=== PATIENT | male | born 2000 | race Caucasian/White ===

== ENCOUNTER 2019-04-17 23:58 | Emergency (ER) | payer OTHER ==
[2019-04-18 00:40] VITALS: BMI 45.9
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
[2019-04-18] MEDS ORDERED: SODIUM CHLORIDE 1,000 ML IV STA (00:53)
[2019-04-18 01:27] LABS: BASO % 0.3 % (0-2.0); EOS % 0.6 % (0-4.5); HEMATOCRIT 44.4 % (35.4-49); HEMOGLOBIN 14.9 GM/dL (11.7-16.9); LYMPH % 14.6 % (8-40); MCH 28.8 pg (25.7-33.7); MCHC 33.5 g/dl (32.0-35.9); MEAN CELL VOLUME 85.9 fl (80-96); MEAN PLT VOLUME 8.7 fl (7.5-11.1); MONO % 7.8 % (3.8-10.2); NEUT % 76.7 % (42.8-82.8); PLATELET COUNT 327 K/MM3 (134-434); RBC 5.17 M/mm3 (4.00-5.60); RDW 13.1 % (11.9-15.9); WHITE BLOOD COUNT 13.1 K/mm3 (4.0-10.0)
[2019-04-18 01:52] LABS: MAGNESIUM 2.3 mg/dL (1.8-2.4); PHOSPHOROUS 3.5 mg/dL (2.5-4.9)
[2019-04-18 02:01] LABS: ALBUMIN 4.1 g/dl (3.4-5.0); BILIRUBIN,TOTAL 0.4 mg/dL (0.2-1); CALCIUM 9.2 mg/dL (8.5-10.1); CREATININE 0.8 mg/dL (0.55-1.3); POTASSIUM 4.3 mmol/L (3.5-5.1); TOT PROT 7.5 g/dl (6.4-8.2)
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
[2019-04-18 03:02] VITALS: BP 137/64; PULSE 108; TEMP 98.7
--- NOTE | 2019-04-18 08:29 | EKG ---
Test Reason : Blood Pressure : / mmHG Vent. Rate : 117 BPM Atrial Rate : 117 BPM P-R Int : 140 ms QRS Dur : 086 ms QT Int : 310 ms P-R-T Axes : 035 015 012 degrees QTc Int : 432 ms SINUS TACHYCARDIA POSSIBLE LEFT ATRIAL ENLARGEMENT LEFT VENTRICULAR HYPERTROPHY ABNORMAL ECG NO PREVIOUS ECGS AVAILABLE Confirmed by DAMARIS MARI, SANJANA ([id number]) on 04/18/2019 8:29:19 AM Referred By: Confirmed By:SANJANA OCAMPO MD
== END 2019-04-18 03:14 | disposition home or self-care (01) ==
LOC: JER 23:58
PROC: 3E0337Z Introduction of Electrolytic and Water Balance Substance into Peripheral Vein, Percutaneous Approach (ICD-10-PCS; principal; 2019-04-17)
DX: R00.2 Palpitations (principal)
CPT/HCPCS: 36415; 71045-TC-FY; 80053; 82550; 83735; 84100; 84443; 84484; 85025; 85379; 93005; 93010; 99281-25; J7030

== ENCOUNTER 2019-08-17 17:56 | Emergency (ER) | payer OTHER ==
[2019-08-17 18:01] VITALS: BP 143/97; PULSE 109; TEMP 98; BMI 43.8
--- NOTE | 2019-08-17 18:03 | PDOC ---
Rapid Medical Evaluation Medical Evaluation: Allergies Allergy/AdvReac Type Severity Reaction Status Date / Time No Known Allergies Allergy Verified 04/18/19 00:40 I have performed a brief in-person evaluation of this patient. The patient presents with a chief complaint of: hx of asthma, C/o L sided chest pressure from last night; denies SOB; feels better with exertion; denies URI sxs ; denies smoking, drug use Pertinent physical exam findings: In NAD, lungs clear I have ordered the following: EKG, CXR The patient will proceed to the ED for further evaluation. 08/17/19 18:00
--- NOTE | 2019-08-17 18:52 | PDOC ---
History of Present Illness - General Chief Complaint: Chest Pain Stated Complaint: CHEST PRESSURE Time Seen by Provider: 08/17/19 18:00 History Source: Patient Exam Limitations: Clinical Condition - History of Present Illness Initial Comments: 08/17/19 18:48 Patient with no significant past medical history presented with complaint of left-sided achiness in the lateral aspect of chest since last night. Patient reported he started for mild discomfort after eating chicken last night which has been intermittent since yesterday. 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 Patient reported he has been having multiple episodes of heart problems when he feels pain pacing his chest and had multiple tests done with normal findings. Patient reported he had a Holter monitor done 4 months ago and also echo done 3 months ago with normal findings. Patient has been seen by multiple flat examiner in the past year for same complaint with no finding. Patient report he is being followed up by cardiology and [facility] and reported had 4 visits to ED in different hospital this year for same symptoms and always being told everything is fine. Patient reported is being scheduled by his cardiology for strep test but has not had time to do it yet. Denies shortness of breath, tingling or numbing sensation, sweats, nausea or vomiting. Patient reports symptoms does not feel like a chest pain but feels more like a chest discomfort. Denies any other symptoms. Patient reports pain is resolved now Is this a multiple visit Asthma Patient?: No Past History - Past Medical History Allergies/Adverse Reactions: Allergies Allergy/AdvReac Type Severity Reaction Status Date / Time Penicillins Allergy Verified 08/17/19 18:02 Asthma: Yes COPD: No - Psycho Social/Smoking Cessation Hx Smoking History: Never smoked Have you smoked in the past 12 months: No Hx Alcohol Use: No Drug/Substance Use Hx: No Review of Systems - Review of Systems Able to Perform ROS?: Yes Is the patient limited Bangladeshi proficient: No Constitutional: No: Malaise, Weakness HEENTM: No: Symptoms Reported, Eye Pain, Blurred Vision, Recent change in vision Respiratory: No: Symptoms reported, See HPI, Cough, Orthopnea, Shortness of Breath, SOB with Exertion, SOB at Rest, Stridor, Wheezing, Productive cough, Hemoptysis, Other Cardiac (ROS): Yes: Symptoms Reported, See HPI, Chest Tightness (left side chest discomfort resolved). No: Chest Pain, Edema, Irregular Heart Rate, Lightheadedness, Palpitations, Syncope, Other ABD/GI: No: Symptoms Reported, Nausea, Vomiting Neurological: No: Symptoms reported, Headache, Numbness, Tingling, Dizziness All Other Systems: Reviewed and Negative *Physical Exam - Vital Signs Last Vital Signs Temp Pulse Resp BP Pulse Ox 98 F 109 H 18 143/97 98 08/17/19 17:58 08/17/19 17:58 08/17/19 17:58 08/17/19 17:58 08/17/19 17:58 - Physical Exam Comments: 08/17/19 18:52 GENERAL: Well developed, well nourished. Awake and alert. Moderate obese patient in no acute distress. HEENT: Normocephalic, atraumatic. PERRLA, EOMI. No conjunctival pallor. Sclera are non-icteric. Moist mucous membranes. Oropharynx is clear. NECK: Supple. Full ROM. CARDIOVASCULAR: Regular rate and rhythm. No murmurs, rubs, or gallops. Distal pulses are 2+ and symmetric. PULMONARY: No evidence of respiratory distress. Lungs clear to auscultation bilaterally. No wheezing, rales or rhonchi. ABDOMINAL: Soft. Non-tender. Non-distended. No rebound or guarding. No organomegaly. Normoactive bowel sounds. MUSCULOSKELETAL Normal range of motion at all joints. EXTREMITIES: No cyanosis. No clubbing. No edema. No calf tenderness. SKIN: Warm and dry. Normal capillary refill. NEUROLOGICAL: Alert, awake, appropriate. Gait is normal without ataxia. PSYCHIATRIC: Cooperative. Good eye contact. Appropriate mood General Appearance: Yes: Nourished, Appropriately Dressed. No: Apparent Distress Medical Decision Making - Medical Decision Making 08/17/19 18:50 Patient with no significant past medical history presented with complaint of left-sided achiness in the lateral aspect of chest since last night. Patient reported he started for mild discomfort after eating chicken last night which has been intermittent since yesterday. 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 Patient reported he has been having multiple episodes of heart problems when he feels pain pacing his chest and had multiple tests done with normal findings. Patient reported he had a Holter monitor done 4 months ago and also echo done 3 months ago with normal findings. Patient has been seen by multiple flat examiner in the past year for same complaint with no finding. Patient report he is being followed up by cardiology and [facility] and reported had 4 visits to ED in different hospital this year for same symptoms and always being told everything is fine. Patient reported is being scheduled by his cardiology for strep test but has not had time to do it yet. Denies shortness of breath, tingling or numbing sensation, sweats, nausea or vomiting. Patient reports symptoms does not feel like a chest pain but feels more like a chest discomfort. Denies any other symptoms. Patient reports pain is resolved now Clinical exam unremarkable with normal cardio lung exam. No reproducible tenderness to chest wall. EKG shows normal sinus rhythm. Chest x-ray ordered to rule out acute chest pathology 08/17/19 19:25 Chest x-ray with no acute infiltrate or pathology. Patient is symptomatic and stable for discharge with cardiology follow-up. Strict follow-up instruction given to patient including coming back to ED if worsening chest pain Discharge - Discharge Information Problems reviewed: Yes Clinical Impression/Diagnosis: Chest discomfort Condition: Improved Disposition: HOME - Admission No - Follow up/Referral - Patient Discharge Instructions Patient Printed Discharge Instructions: DI for Atypical Chest Pain, DI for Chest Pain Additional Instructions: Your EKG was normal. Your chest x-ray is normal and shows no acute pathology. Symptoms likely caused by muscle strain. Follow-up with your flat examiner. Come back to emergency room if worsening chest pain with shortness of breath. - Post Discharge Activity
[2019-08-17] MEDS ORDERED: ACETAMINOPHEN 325 MG TABLET (FP) PO ONE (19:24)
--- NOTE | 2019-08-18 11:29 | EKG ---
Test Reason : Blood Pressure : / mmHG Vent. Rate : 098 BPM Atrial Rate : 098 BPM P-R Int : 130 ms QRS Dur : 088 ms QT Int : 340 ms P-R-T Axes : 029 018 028 degrees QTc Int : 434 ms NORMAL SINUS RHYTHM MINIMAL VOLTAGE CRITERIA FOR LVH, MAY BE NORMAL VARIANT BORDERLINE ECG WHEN COMPARED WITH ECG OF 18-APR-2019 02:20, NONSPECIFIC T WAVE ABNORMALITY NO LONGER EVIDENT IN ANTERIOR LEADS Confirmed by MINDY MARI, SAÚL ([id number]) on 08/18/2019 11:29:18 AM Referred By: Confirmed By:SAÚL GUILLEN MD
== END 2019-08-17 19:27 | disposition home or self-care (01) ==
LOC: JERFT 17:56
DX: R07.89 Other chest pain (principal); Z88.0 Allergy status to penicillin
CPT/HCPCS: 71046-TC-FY; 93005; 93010; 99281-25

== ENCOUNTER 2019-09-21 04:53 | Emergency (ER) | payer OTHER ==
[2019-09-21 05:59] VITALS: BP 150/73; PULSE 91; TEMP 98.1; BMI 45.0
--- NOTE | 2019-09-21 06:18 | PDOC ---
History of Present Illness <Von Patel - Last Filed: 09/21/19 07:16> - General History Source: Patient Exam Limitations: No Limitations - History of Present Illness Initial Comments: 09/21/19 06:10 Deni Kuhn is a 19M with PMH renal stones presenting with suprapubic pain. 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 Allergy to penicillin No other PMH No other PSH No tobacco/drugs/alcohol <Rolan Carreno - Last Filed: 09/22/19 14:43> - General Chief Complaint: Urinary Problem Stated Complaint: ABDOMINAL PAIN Time Seen by Provider: 09/21/19 05:28 Past History <Von Patel - Last Filed: 09/21/19 07:16> - Past Medical History Asthma: Yes COPD: No - Immunization History Td Vaccination: Yes TDAP Vaccination: Yes Immunization Up to Date: Yes - Psycho Social/Smoking Cessation Hx Smoking History: Never smoked Have you smoked in the past 12 months: No Information on smoking cessation initiated: No Hx Alcohol Use: No Drug/Substance Use Hx: No <Rolan Carreno - Last Filed: 09/22/19 14:43> - Past Medical History Allergies/Adverse Reactions: Allergies Allergy/AdvReac Type Severity Reaction Status Date / Time Penicillins Allergy Verified 09/21/19 05:42 Home Medications: Ambulatory Orders NK [No Known Home Medication] 09/21/19 Review of Systems - Review of Systems Able to Perform ROS?: Yes Constitutional: No: Symptoms Reported HEENTM: No: Symptoms Reported Respiratory: No: Symptoms reported Cardiac (ROS): No: Symptoms Reported ABD/GI: No: Constipated, Diarrhea, Nausea, Poor Appetite, Poor Fluid Intake, Vomiting : Yes: Frequency, Testicular Pain. No: Burning, Dysuria, Discharge, Flank Pain, Hematuria, Incontinence, Pain, Urgency, Testicular Mass, Testicular Swelling Musculoskeletal: No: Symptoms Reported Integumentary: No: Symptoms Reported Neurological: No: Symptoms reported Endocrine: No: Symptoms Reported Hematologic/Lymphatic: No: Symptoms Reported All Other Systems: Reviewed and Negative <Rolan Carreno - Last Filed: 09/22/19 14:43> *Physical Exam - Vital Signs Last Vital Signs Temp Pulse Resp BP Pulse Ox 98.1 F 91 H 20 150/73 100 09/21/19 05:38 09/21/19 05:38 09/21/19 05:38 09/21/19 05:38 09/21/19 05:38 <Von Patel - Last Filed: 09/21/19 07:16> - Vital Signs Last Vital Signs Temp Pulse Resp BP Pulse Ox 98.1 F 91 H 20 150/73 100 09/21/19 05:38 09/21/19 05:38 09/21/19 05:38 09/21/19 05:38 09/21/19 05:38 - Physical Exam General Appearance: Yes: Nourished, Appropriately Dressed, Obese HEENT: positive: EOMI, LILA, Normal Voice, Symmetrical, Pharynx Normal, Hearing Grossly Normal. negative: Scleral Icterus (R), Scleral Icterus (L) Neck: positive: Trachea midline, Normal Thyroid, Supple. negative: Tender, Lymphadenopathy (R), Lymphadenopathy (L) Respiratory/Chest: positive: Lungs Clear, Normal Breath Sounds. negative: Chest Tender, Respiratory Distress, Accessory Muscle Use, Crackles, Rales, Rhonchi, Stridor, Wheezing Cardiovascular: positive: Regular Rhythm, Regular Rate Gastrointestinal/Abdominal: positive: Normal Bowel Sounds, Flat, Soft, Organomegaly. negative: Tender, Pulsatile Mass, Guarding, Rebound Male Genitalia: positive: normal genitalia, inguinal hernia (L side indirect, worsens with Valsalva). negative: discharge, testicular tenderness, testicular mass, epididymus tender Musculoskeletal: positive: Normal Inspection. negative: CVA Tenderness Extremity: positive: Normal Capillary Refill, Normal Inspection. negative: Normal Range of Motion, Tender Integumentary: positive: Normal Color, Dry, Warm Neurologic: positive: Fully Oriented, Alert, Normal Mood/Affect, Normal Response <Rolan Carreno - Last Filed: 09/22/19 14:43> ED Treatment Course - ADDITIONAL ORDERS Additional order review: Laboratory Results 09/21/19 06:20 Urine Color Yellow Urine Appearance Clear Urine pH 6.0 Ur Specific [place] 1.021 Urine Protein Negative Urine Glucose (UA) Negative Urine Ketones Negative Urine Blood Negative Urine Nitrite Negative Urine Bilirubin Negative Urine Urobilinogen 0.2 Ur Leukocyte Esterase Trace Urine WBC (Auto) 6 Urine RBC (Auto) 1 Urine Casts (Auto) 4 U Epithel Cells (Auto) 1.2 Urine Bacteria (Auto) 2.9 <JorgeVon - Last Filed: 09/21/19 07:16> Medical Decision Making - Medical Decision Making 09/21/19 06:10 Deni Kuhn is a 19M with H renal stones presenting with suprapubic pain. Ddx includes renal stones, UTI, torsion, hernia, constipation. Low risk of STD, patient denies sexual activity. UA/UC 09/21/19 07:22 UA negative. Physical exam shows non-tender L indirect inguinal hernia confirmed with movement with cough. Attending examination did not reveal this, had spontaneously reduced. Non-tender testicles, no penile discharge. Patient in NAD with no N/V, asymptomatic. Stable to be discharged home with PMD and general surgery consult for evaluation of indirect inguinal hernia. <Rolan Carreno - Last Filed: 09/22/19 14:43> Discharge - Discharge Information Problems reviewed: Yes - Admission No <JorgeVon kebede - Last Filed: 09/21/19 07:16> - Discharge Information Problems reviewed: Yes - Admission No <Rolan Carreno - Last Filed: 09/22/19 14:43> - Discharge Information Clinical Impression/Diagnosis: Suprapubic pain, Inguinal hernia of left side without obstruction or gangrene Condition: Stable Disposition: HOME - Follow up/Referral Referrals: Keo Nair MD [Staff Physician] - - Patient Discharge Instructions Patient Printed Discharge Instructions: DI for Groin Hernia Additional Instructions: You were seen for abdominal pain. You may have a hernia. Your labs did not show anything concerning. Please make an appointment with your primary care doctor regarding your visit. See the referred surgeon if your pain does not improve. Come back to the ED if you have worsening pain, vomiting, bloody bowel movement , or cannot urinate or defecate.
--- NOTE | 2019-09-21 06:44 | PDOC ---
Attending Attestation - Resident Resident Name: Rolan Carreno - ED Attending Attestation I have performed the following: I have examined & evaluated the patient, The case was reviewed & discussed with the resident, I agree w/resident's findings & plan, Exceptions are as noted - HPI HPI: 09/21/19 07:11 19M no pmh here with pelvic pressure for a day. Started insidiously, no spikes , no pain free periods, no dysuria, urgency, frequency. 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 - Physicial Exam PE: 09/21/19 07:13 Agree with exam as documented by resident Small, freely mobile, easily reduced L inguinal hernia - Medical Decision Making 09/21/19 07:13 Small, reduced L inguinal hernia UA clear Gen surg follow up
[2019-09-21 06:54] LABS: EPI CELLS 1.2 /HPF (0-5/HPF); HYALINE CASTS 4 /lpf (0-8); URINE APPEARANCE CLEAR; URINE BACTERIA 2.9 /hpf (NEGATIVE); URINE BILIRUBIN NEGATIVE (NEGATIVE); URINE COLOR YELLOW; URINE GLUCOSE (UA) NEGATIVE (NEGATIVE); URINE KETONE NEGATIVE (NEGATIVE); URINE LEUK ESTERASE TRACE (NEGATIVE); URINE NITRITE NEGATIVE (NEGATIVE); URINE PROTEIN NEGATIVE (NEGATIVE); URINE RBC 1 /hpf (0-4); URINE UROBILINOGEN 0.2 mg/dL (0.2-1.0); URINE WBC 6 /hpf (0-5)
== END 2019-09-21 07:22 | disposition home or self-care (01) ==
LOC: JER 04:53
DX: R10.30 Lower abdominal pain, unspecified (principal); K46.9 Unspecified abdominal hernia without obstruction or gangrene; Z88.0 Allergy status to penicillin; K59.00 Constipation, unspecified; N39.0 Urinary tract infection, site not specified
CPT/HCPCS: 81003; 87086; 99282-25

== ENCOUNTER 2019-11-25 04:18 | Emergency (ER) | payer OTHER ==
[2019-11-25] MEDS ORDERED: SODIUM CHLORIDE 1,000 ML IV STA (04:24)
[2019-11-25 04:28] VITALS: TEMP 98.2; BMI 43.4
--- NOTE | 2019-11-25 04:31 | PDOC ---
Attending Attestation - Resident Resident Name: Isa Buck - ED Attending Attestation I have performed the following: I have examined & evaluated the patient, The case was reviewed & discussed with the resident, I agree w/resident's findings & plan - HPI HPI: 11/25/19 06:53 {Pt comes with chest pain and palpitations. - Physicial Exam PE: 11/25/19 06:53 Pt has tachycardia afebrile heart tachy lungs CTA abd soft NT ND no flank pain no ext tenderness - Medical Decision Making 11/25/19 07:03 Pt is obese and he has been eating [place] and junk food and not exercising. He lost his job in [employer] and hasn't gotten another one. Pt is stressed. Takes his propranolol. Now with atypical CP EKG pattern normal Tachy CXR normal labs normal Heart Score/ECG Review - ECG Intrepretation Rhythm: Regular Rhythm - [place]: Normal - P and NC Delta Wave(s) Present: No WPW: No - ST and T Early Repolarization: No Non Specific ST-T Wave changes: No Flattened T Waves: No Prolonged Q-T Interval: No - ECG Impressions Normal ECG: Yes Non-specific ST Elevation: No Ischemic Changes: No Bradycardia: No Tachycardia: Sinus Torsades param Pointes: No WPW: No
--- NOTE | 2019-11-25 04:38 | PDOC ---
History of Present Illness - History of Present Illness Initial Comments: 11/25/19 04:32 19 yo M PMH unexplained tachycardia on propranolol, obesity, presenting with tachycardia. Reports that he had finished eating [place] food when he began to develop faster heart rate. Became nauseous and vomited all of the food he ate, after which he initially felt better. However, he began to develop mild chest pain and shortness of breath, became more and more anxious, and so he called EMS. Notes that he has not been drinking much fluid recently. Has been eating very unhealthy for the past two weeks. Medical Care Manager is Dr. Trivedi at [place]. Patient only has 3 tablets of propranolol left. <Isa Buck - Last Filed: 11/25/19 07:01> <Guera Salvador - Last Filed: 11/25/19 07:03> - General Chief Complaint: Chest Pain Stated Complaint: CHEST PAIN Time Seen by Provider: 11/25/19 04:30 Past History - Past Medical History Asthma: Yes Cardiac Disorders: Yes (TACHYCARDIA) COPD: No - Immunization History Td Vaccination: Yes TDAP Vaccination: Yes Immunization Up to Date: Yes - Psycho Social/Smoking Cessation Hx Smoking History: Never smoked Have you smoked in the past 12 months: No Hx Alcohol Use: No Drug/Substance Use Hx: No <Isa Buck - Last Filed: 11/25/19 07:01> <Guera Salvador - Last Filed: 11/25/19 07:03> - Past Medical History Allergies/Adverse Reactions: Allergies Allergy/AdvReac Type Severity Reaction Status Date / Time Penicillins Allergy Verified 11/25/19 04:28 Home Medications: Ambulatory Orders Propranolol HCl 20 mg PO DAILY #30 tablet 11/25/19 Review of Systems - Review of Systems Comments:: 11/25/19 05:54 GENERAL/CONSTITUTIONAL: denies fever, chills, diaphoresis, generalized weakness , malaise, loss of appetite, weight change HEAD, EYES, EARS, NOSE AND THROAT: denies rhinorrhea, nasal congestion, throat pain, throat swelling, difficulty swallowing, mouth swelling, ear pain, eye pain , visual changes NEUROLOGIC: denies headache, focal weakness or paresthesias, dizziness, unsteady gait, seizure, mental status changes, bladder or bowel incontinence CARDIOVASCULAR: endorses mild chest pain and palpitations. Denies syncope, irregular heart rate, lightheadedness, peripheral edema RESPIRATORY: endorses SOB. Denies cough, dyspnea with exertion, orthopnea, wheezing, stridor, hemoptysis GASTROINTESTINAL: endorses one episode of vomiting, not currently nauseous. Denies abdominal pain, abdominal distension, diarrhea, constipation, melena, hematochezia GENITOURINARY: denies dysuria, frequency, urgency, hesitancy, hematuria, flank pain, genital pain MUSCULOSKELETAL: denies myalgia, arthralgia, joint swelling, back pain, neck pain SKIN: denies rash, itching, pallor HEMATOLOGIC/IMMUNOLOGIC: denies easy bleeding, easy bruising, lymphadenopathy, frequent infections ENDOCRINE: denies unexplained weight gain, unexplained weight loss, heat intolerance, cold intolerance PSYCHIATRIC: denies anxiety, depression, suicidal or homicidal ideation, hallucinations. <Isa Buck - Last Filed: 11/25/19 07:01> *Physical Exam - Vital Signs Last Vital Signs Temp Pulse Resp BP Pulse Ox 98.2 F 120 H 20 150/88 100 11/25/19 04:23 11/25/19 04:23 11/25/19 04:23 11/25/19 04:23 11/25/19 04:23 - Physical Exam 11/25/19 05:55 GENERAL: Awake, alert, and fully oriented, in no acute distress. HEAD: Normal with no signs of trauma. EYES: Pupils equal, round and reactive to light, extraocular movements intact, sclera anicteric, conjunctiva clear. No lid lag. EARS, NOSE, THROAT: Ears normal, nares patent, oropharynx clear without exudates. Dry mucous membranes. NECK: Normal range of motion, supple without lymphadenopathy, JVD, or masses. LUNGS: Breath sounds equal, clear to auscultation bilaterally. No wheezes, and no crackles. No accessory muscle use. HEART: Tachycardic to 120s, normal S1 and S2 without murmur, rub or gallop. ABDOMEN: Soft, obese, nontender, non-distended, normoactive bowel sounds, negative guarding, negative rebound MUSCULOSKELETAL: Normal range of motion at all joints. No bony deformities or tenderness. No CVA tenderness. UPPER EXTREMITIES: 2+ pulses, warm, well-perfused. No cyanosis. No clubbing. Cap refill <2 seconds. No peripheral edema. LOWER EXTREMITIES: 2+ pulses, warm, well-perfused. No calf tenderness. No peripheral edema. NEUROLOGICAL: Cranial nerves II-XII intact. Normal speech. PSYCHIATRIC: Cooperative. Good eye contact. Appropriate mood and affect. SKIN: Warm, dry, normal turgor, no rashes or lesions noted. <Isa Buck - Last Filed: 11/25/19 07:01> - Vital Signs Last Vital Signs Temp Pulse Resp BP Pulse Ox 98.2 F 98 H 18 150/88 99 11/25/19 04:23 11/25/19 06:35 11/25/19 05:43 11/25/19 04:23 11/25/19 05:43 <Guera Salvador - Last Filed: 11/25/19 07:03> ED Treatment Course - LABORATORY CBC & Chemistry Diagram: 11/25/19 05:00 11/25/19 05:00 <Isa Buck - Last Filed: 11/25/19 07:01> - LABORATORY CBC & Chemistry Diagram: 11/25/19 05:00 11/25/19 05:00 - ADDITIONAL ORDERS Additional order review: Laboratory Results 11/25/19 05:00 Sodium 142 Potassium 3.9 Chloride 108 H Carbon Dioxide 29 Anion Gap 6 L BUN 9.5 Creatinine 0.8 Est GFR (CKD-EPI)AfAm 149.04 Est GFR (CKD-EPI)NonAf 128.60 Random Glucose 104 Calcium 8.9 Total Bilirubin 0.4 AST 47 H ALT 107 H Alkaline Phosphatase 118 H Creatine Kinase 65 Troponin I 0.04 Total Protein 6.6 Albumin 3.4 TSH 0.96 D 11/25/19 05:00 RBC 4.82 MCV 85.1 MCHC 34.3 RDW 13.2 MPV 9.1 Neutrophils % 73.2 Lymphocytes % 17.6 D Monocytes % 8.5 Eosinophils % 0.5 Basophils % 0.2 - Medications Given in the ED: ED Medications Discontinued Medications Generic Name Dose Route Start Last Admin Trade Name Freq PRN Reason Stop Dose Admin Sodium Chloride 1,000 mls @ 1,000 mls/hr 11/25/19 04:24 11/25/19 05:12 Normal Saline - IV 11/25/19 05:23 1,000 mls/hr ASDIR STA Administration <Guera Salvador - Last Filed: 11/25/19 07:03> Medical Decision Making - Medical Decision Making 11/25/19 04:36 Concern for dehydration vs hyperthyroidism. - CBC, CMP - EKG, CXR - IVF EKG with sinus tachycardia at 120, otherwise unremarkable. 11/25/19 06:05 WBC 12.9. CXR without acute pathology. 11/25/19 06:26 Labs unremarkable. Specifically, TSH normal. Patient took his home propranolol, heart rate down to high 90s/low 100s. Will dc for further outpatient management. <Ias Buck - Last Filed: 11/25/19 07:01> Discharge - Discharge Information Problems reviewed: Yes - Admission No <Isa Buck - Last Filed: 11/25/19 07:01> <Guera Salvador - Last Filed: 11/25/19 07:03> - Discharge Information Clinical Impression/Diagnosis: Palpitations Condition: Improved Disposition: HOME - Additional Discharge Information Prescriptions: Propranolol HCl 20 mg PO DAILY #30 tablet - Follow up/Referral Referrals: Eliza Trivedi MD [Primary Care Provider] - - Patient Discharge Instructions Patient Printed Discharge Instructions: Eating a Diet Rich in Fruits and Vegetables Additional Instructions: You were seen with palpitations. This improved with fluids and propranolol. Your labs were unconcerning. Follow up with your machine adjuster leader case trim and your primary care doctor within one week. Return to the ED if you develop worsening symptoms.
[2019-11-25 05:59] LABS: BASO % 0.2 % (0-2.0); EOS % 0.5 % (0-4.5); HEMATOCRIT 41.1 % (35.4-49); HEMOGLOBIN 14.1 GM/dL (11.7-16.9); LYMPH % 17.6 % (8-40); MCH 29.2 pg (25.7-33.7); MCHC 34.3 g/dl (32.0-35.9); MEAN CELL VOLUME 85.1 fl (80-96); MEAN PLT VOLUME 9.1 fl (7.5-11.1); MONO % 8.5 % (3.8-10.2); NEUT % 73.2 % (42.8-82.8); PLATELET COUNT 324 K/MM3 (134-434); RBC 4.82 M/mm3 (4.00-5.60); RDW 13.2 % (11.9-15.9); WHITE BLOOD COUNT 12.9 K/mm3 (4.0-10.0)
[2019-11-25 06:25] LABS: ALBUMIN 3.4 g/dl (3.4-5.0); BILIRUBIN,TOTAL 0.4 mg/dL (0.2-1); BLOOD UREA NITROGEN 9.5 mg/dL (7-18); CALCIUM 8.9 mg/dL (8.5-10.1); CREATININE 0.8 mg/dL (0.55-1.3); POTASSIUM 3.9 mmol/L (3.5-5.1); TOT PROT 6.6 g/dl (6.4-8.2)
[2019-11-25 06:35] VITALS: PULSE 98
[2019-11-25 07:03] VITALS: BP 145/83
--- NOTE | 2019-11-26 10:13 | EKG ---
Test Reason : Blood Pressure : / mmHG Vent. Rate : 120 BPM Atrial Rate : 120 BPM P-R Int : 146 ms QRS Dur : 088 ms QT Int : 308 ms P-R-T Axes : 055 030 039 degrees QTc Int : 435 ms POOR DATA QUALITY, INTERPRETATION MAY BE ADVERSELY AFFECTED SINUS TACHYCARDIA LATERAL INFARCT , AGE UNDETERMINED ABNORMAL ECG WHEN COMPARED WITH ECG OF 17-AUG-2019 18:03, COMPARED TO EKG NO SIGNIFICANT CHANGE IS FOUND Confirmed by Guerrero Weller ([id number]) on 11/26/2019 10:13:37 AM Referred By: Confirmed By:Guerrero Weller
== END 2019-11-25 07:03 | disposition home or self-care (01) ==
LOC: JER 04:18
PROC: 3E0337Z Introduction of Electrolytic and Water Balance Substance into Peripheral Vein, Percutaneous Approach (ICD-10-PCS; principal; 2019-11-25)
DX: R07.9 Chest pain, unspecified (principal); R00.2 Palpitations; E66.01 Morbid (severe) obesity due to excess calories; Z68.41 Body mass index [BMI] 40.0-44.9, adult
CPT/HCPCS: 36415; 71045-TC-FY; 80053; 82550; 84443; 84484; 85025; 93005; 93010; 96360; 99285-25; J7030

== ENCOUNTER 2019-11-29 21:09 | Emergency (ER) | payer OTHER ==
--- NOTE | 2019-11-29 21:13 | PDOC ---
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 No m/r/g. Orders: cardiac w/u Patient will proceed to ED for continued evaluation. Discharge Disposition - Diagnosis Chest discomfort - Referrals - Patient Instructions - Post Discharge Activity
[2019-11-29 21:14] VITALS: BMI 41.7
[2019-11-29 21:44] LABS: BASO % 0.3 % (0-2.0); EOS % 0.2 % (0-4.5); HEMATOCRIT 47.7 % (35.4-49); HEMOGLOBIN 16.1 GM/dL (11.7-16.9); LYMPH % 14.5 % (8-40); MCH 28.8 pg (25.7-33.7); MCHC 33.7 g/dl (32.0-35.9); MEAN CELL VOLUME 85.4 fl (80-96); MEAN PLT VOLUME 8.9 fl (7.5-11.1); MONO % 6.2 % (3.8-10.2); NEUT % 78.8 % (42.8-82.8); PLATELET COUNT 405 K/MM3 (134-434); RBC 5.58 M/mm3 (4.00-5.60); WHITE BLOOD COUNT 12.1 K/mm3 (4.0-10.0)
[2019-11-29 22:19] LABS: ALBUMIN 4.2 g/dl (3.4-5.0); BILIRUBIN,TOTAL 0.8 mg/dL (0.2-1); BLOOD UREA NITROGEN 6.8 mg/dL (7-18); CALCIUM 9.8 mg/dL (8.5-10.1); CREATININE 0.8 mg/dL (0.55-1.3); MAGNESIUM 2.1 mg/dL (1.8-2.4); POTASSIUM 4.1 mmol/L (3.5-5.1)
[2019-11-29] MEDS: ASPIRIN 81 MG CHEWABLE TABLETS PO ONE (22:54)
[2019-11-29] MEDS ORDERED: ASPIRIN 81 MG CHEWABLE TABLETS ONE (23:01)
[2019-11-29 23:33] VITALS: TEMP 98
[2019-11-30] MEDS ORDERED: METOPROLOL TARTRATE 5 MG/5 ML VIAL IVPUSH ONE
[2019-11-30] MEDS ORDERED: SODIUM CHLORIDE 1,000 ML IV STA (00:34)
[2019-11-30] MEDS ORDERED: METOPROLOL TARTRATE 5 MG/5 ML VIAL ONE (00:38)
--- NOTE | 2019-11-30 00:43 | PDOC ---
History of Present Illness - General Chief Complaint: Chest Pain Stated Complaint: CHEST PAIN Time Seen by Provider: 11/29/19 21:11 History Source: Patient Exam Limitations: No Limitations Past History - Past Medical History Allergies/Adverse Reactions: Allergies Allergy/AdvReac Type Severity Reaction Status Date / Time Penicillins Allergy Verified 11/29/19 21:14 Home Medications: Ambulatory Orders Propranolol HCl 20 mg PO DAILY #30 tablet 11/25/19 Asthma: Yes Cardiac Disorders: Yes (TACHYCARDIA) COPD: No - Immunization History Td Vaccination: Yes TDAP Vaccination: Yes Immunization Up to Date: Yes - Psycho Social/Smoking Cessation Hx Smoking History: Never smoked Have you smoked in the past 12 months: No Hx Alcohol Use: No Drug/Substance Use Hx: No *Physical Exam - Vital Signs Last Vital Signs Temp Pulse Resp BP Pulse Ox 98.0 F 131 H 16 149/84 98 11/29/19 22:13 11/29/19 22:13 11/29/19 22:13 11/29/19 22:13 11/29/19 22:13 - Physical Exam General Appearance: No: Apparent Distress Respiratory/Chest: positive: Lungs Clear, Normal Breath Sounds. negative: Respiratory Distress Cardiovascular: positive: Tachycardia. negative: Murmur Gastrointestinal/Abdominal: positive: Normal Bowel Sounds, Soft. negative: Tender, Distended, Guarding, Rebound Extremity: negative: Pedal Edema, Swelling, Calf Tenderness Neurologic: positive: Alert ED Treatment Course - LABORATORY CBC & Chemistry Diagram: 11/29/19 21:30 11/29/19 21:30 - ADDITIONAL ORDERS Additional order review: Laboratory Results 11/29/19 11/29/19 21:30 21:30 Sodium 138 Potassium 4.1 Chloride 105 Carbon Dioxide 25 Anion Gap 8 BUN 6.8 L Creatinine 0.8 Est GFR (CKD-EPI)AfAm 149.04 Est GFR (CKD-EPI)NonAf 128.60 Random Glucose 123 H Calcium 9.8 Magnesium 2.1 Total Bilirubin 0.8 AST 35 ALT 78 H Alkaline Phosphatase 119 H Creatine Kinase 54 Troponin I 0.05 Total Protein 8.0 Albumin 4.2 11/29/19 21:30 RBC 5.58 MCV 85.4 MCHC 33.7 RDW 13.0 MPV 8.9 Neutrophils % 78.8 Lymphocytes % 14.5 Monocytes % 6.2 Eosinophils % 0.2 Basophils % 0.3 - Medications Given in the ED: ED Medications Discontinued Medications Generic Name Dose Route Start Last Admin Trade Name Natalie PRN Reason Stop Dose Admin Aspirin 162 mg 11/29/19 21:13 11/29/19 22:54 Asa - PO 11/29/19 21:14 162 mg ONCE ONE Administration Medical Decision Making - Medical Decision Making 19-year-old male with history of asthma, chronic palpitations since August 2018 (cause unclear) presents with complaint of substernal chest discomfort which started around 5-6 PM along with palpitations, mild shortness of breath and mild lightheadedness. Patient is following with a manager universal at [facility] for his symptoms. Patient was here 4 days ago for similar complaint and received a refill for his propanolol which was initially prescribed by his manager universal in September 2019. He states he has had a Holter testing done in either July or August 2019 which was normal. He is also had an echocardiogram done in the past few months which was also normal. States he is only pending to get a stress test done. Denies fever, URI symptoms, abdominal pain, nausea, vomiting, calf pain. Denies smoking or drug use. EKG 9:24 PM: Sinus tachycardia at 118 BPM Repeat EKG 11:41 PM: Sinus tachycardia at 120 BPM Labs reviewed unremarkable Patient had TSH checked 4 days ago which was normal Given chronic palpitations and no history of recent travel or recent surgeries not suspicious for PE Labs reviewed and unremarkable Discussed with Dr. Murray who wanted to admit patient for telemetry observation Discussed case with admitting, Dr. Borja, who would like a urine toxicology and patient to receive IV fluids before admission Pending results of urine tox 11/30/19 00:42 Patient HR improved to 90s after receiving Metoprolol D/W Dr. Murray - recommends given dose of PO Metoprolol and having patient f/u with manager universal instead of admitting him Patient otherwise well appearing There could be component of psychological factor causing sinus tachycardia too ( patient seems nervous from conversation with him) 11/30/19 01:45 Discharge - Discharge Information Problems reviewed: Yes Clinical Impression/Diagnosis: Palpitations Condition: Stable Disposition: HOME - Admission No - Follow up/Referral Referrals: Eliza Trivedi MD [Primary Care Provider] - - Patient Discharge Instructions Patient Printed Discharge Instructions: DI for Palpitations Additional Instructions: Thank you for choosing [facility]. It was a pleasure taking care of you. Please continue taking your propanolol Please continue follow-up with your manager universal within 1 week Also recommend following up with your primary care doctor in 1 week Return to the Emergency Department if your symptoms worsen or persist or have other concerning symptoms. - Post Discharge Activity
[2019-11-30] MEDS: ASPIRIN 81 MG CHEWABLE TABLETS PO ONE (00:55)
[2019-11-30] MEDS ORDERED: METOPROLOL TARTRATE 25 MG TABLET (FP) PO ONE (01:31)
[2019-11-30] MEDS ORDERED: METOPROLOL TARTRATE 25 MG TABLET (FP) ONE (01:35)
[2019-11-30 01:59] VITALS: BP 141/82; PULSE 92
--- NOTE | 2019-11-30 06:23 | PDOC ---
*Physical Exam - Vital Signs Last Vital Signs Temp Pulse Resp BP Pulse Ox 98.0 F 92 H 18 141/82 100 11/29/19 22:13 11/30/19 01:58 11/30/19 01:58 11/30/19 01:58 11/30/19 01:58 ED Treatment Course - LABORATORY CBC & Chemistry Diagram: 11/29/19 21:30 11/29/19 21:30 - ADDITIONAL ORDERS Additional order review: Laboratory Results 11/29/19 11/29/19 21:30 21:30 Sodium 138 Potassium 4.1 Chloride 105 Carbon Dioxide 25 Anion Gap 8 BUN 6.8 L Creatinine 0.8 Est GFR (CKD-EPI)AfAm 149.04 Est GFR (CKD-EPI)NonAf 128.60 Random Glucose 123 H Calcium 9.8 Magnesium 2.1 Total Bilirubin 0.8 AST 35 ALT 78 H Alkaline Phosphatase 119 H Creatine Kinase 54 Troponin I 0.05 Total Protein 8.0 Albumin 4.2 11/29/19 21:30 RBC 5.58 MCV 85.4 MCHC 33.7 RDW 13.0 MPV 8.9 Neutrophils % 78.8 Lymphocytes % 14.5 Monocytes % 6.2 Eosinophils % 0.2 Basophils % 0.3 - Medications Given in the ED: ED Medications Discontinued Medications Generic Name Dose Route Start Last Admin Trade Name Freq PRN Reason Stop Dose Admin Aspirin 162 mg 11/29/19 21:13 11/30/19 00:55 Asa - PO 11/29/19 21:14 Not Given ONCE ONE Sodium Chloride 1,000 mls @ 1,000 mls/hr 11/30/19 00:34 11/30/19 00:47 Normal Saline - IV 11/30/19 01:33 Not Given ASDIR STA Metoprolol Tartrate 5 mg 11/30/19 00:00 11/30/19 00:47 Lopressor Injection - IVPUSH 11/30/19 00:01 5 mg ONCE ONE Administration Metoprolol Tartrate 25 mg 11/30/19 01:31 11/30/19 01:39 Lopressor - PO 11/30/19 01:32 25 mg ONCE ONE Administration Medical Decision Making - Medical Decision Making 11/30/19 06:22 Case reviewed, agree with assessment and plan Discharge - Discharge Information Problems reviewed: Yes Clinical Impression/Diagnosis: Palpitations Condition: Stable Disposition: HOME - Follow up/Referral Referrals: Eliza Trivedi MD [Primary Care Provider] - - Patient Discharge Instructions Patient Printed Discharge Instructions: DI for Palpitations Additional Instructions: Thank you for choosing [facility]. It was a pleasure taking care of you. Please continue taking your propanolol Please continue follow-up with your renewals manager within 1 week Also recommend following up with your primary care doctor in 1 week Return to the Emergency Department if your symptoms worsen or persist or have other concerning symptoms. - Post Discharge Activity
--- NOTE | 2019-11-30 11:44 | EKG ---
Test Reason : Blood Pressure : / mmHG Vent. Rate : 118 BPM Atrial Rate : 118 BPM P-R Int : 132 ms QRS Dur : 082 ms QT Int : 260 ms P-R-T Axes : 049 025 025 degrees QTc Int : 364 ms SINUS TACHYCARDIA POSSIBLE LEFT ATRIAL ENLARGEMENT NONSPECIFIC T WAVE ABNORMALITY CANNOT RULE OUT LATERAL INFARCT , AGE UNDETERMINED ABNORMAL ECG WHEN COMPARED WITH ECG OF 25-NOV-2019 04:25, NO SIGNIFICANT CHANGE WAS FOUND Confirmed by ANAYELI VOSS MD ([id number]) on 11/30/2019 11:44:19 AM Referred By: Confirmed By:ANAYELI VOSS MD
--- NOTE | 2019-12-02 09:58 | EKG ---
Test Reason : Blood Pressure : / mmHG Vent. Rate : 120 BPM Atrial Rate : 120 BPM P-R Int : 138 ms QRS Dur : 082 ms QT Int : 276 ms P-R-T Axes : 047 021 043 degrees QTc Int : 390 ms SINUS TACHYCARDIA POSSIBLE LEFT ATRIAL ENLARGEMENT NONSPECIFIC T WAVE ABNORMALITY ABNORMAL ECG WHEN COMPARED WITH ECG OF 29-NOV-2019 21:24, NO SIGNIFICANT CHANGE WAS FOUND Confirmed by SAÚL GUILLEN MD ([id number]) on 12/02/2019 9:58:21 AM Referred By: Confirmed By:SAÚL GUILLEN MD
== END 2019-11-30 01:59 | disposition home or self-care (01) ==
LOC: JER 21:09
PROC: 3E033GC Introduction of Other Therapeutic Substance into Peripheral Vein, Percutaneous Approach (ICD-10-PCS; principal; 2019-11-29)
DX: R00.2 Palpitations (principal)
CPT/HCPCS: 36415; 71046-TC-FY; 80053; 82550; 83735; 84484; 85025; 93005; 93010; 96374; 99285-25